=== PATIENT | female | born 1960 | race Caucasian/White ===

== ENCOUNTER 2022-11-17 07:50 | Emergency (ER) | payer BC ==
[~2022-11-17] VITALS: Ht 162.6 cm; Wt 78.0 kg
[2022-11-17] MEDS ORDERED: LEVOTHYROXINE50 MCG PO (08:11)
[2022-11-17] MEDS ORDERED: TUSSIN DM SYRU118 ML PO (10:51)
[2022-11-17] MEDS ORDERED: ZITHROMAX500 MG PO (10:51)
== END 2022-11-17 10:58 | disposition home or self-care (01) ==
LOC: ER 07:50
DX: B34.9 Viral infection, unspecified (principal); E03.9 Hypothyroidism, unspecified; Z20.822 Contact with and (suspected) exposure to COVID-19